=== PATIENT | female | born 1975 | race Caucasian/White ===

== ENCOUNTER 2017-10-25 20:05 | Emergency (ER) | payer BC ==
[2017-10-25] MEDS ORDERED: PROMETHAZINE HCL 25 MG TABLET PO ONE (22:04)
[2017-10-25] MEDS ORDERED: HYDROCODONE/ACETAMINOPHEN 5-325 MG TABLET PO ONE (22:05)
--- NOTE | 2017-10-25 22:05 | ER Document Report ---
ED Medical Screen (RME) - General Chief Complaint: Abdominal Pain Stated Complaint: LEF ABODOMINAL PAIN Time Seen by Provider: 10/25/17 22:03 Mode of Arrival: Ambulatory Information source: Patient Notes: 42-year-old female presents to ED for complaint of left lower quadrant abdominal pain with nausea or vomiting 3-4 times diarrhea 2. She states this all started about 3 PM. She denies any history of fever. She does have a history of kidney stones. Last kidney stone with a year ago. She states she took Motrin and Flomax at 3 PM at 4 PM she took Zofran at 4:30 PM she took Tylenol. She states she has had burning frequency urgency pressure and pain with urination. Her worst pain is on her left flank. She is very tender to palpation. Patient will be treated with narcotics and Phenergan in the emergency room and then she will be seen in the back by 1 of the providers. I have greeted and performed a rapid initial assessment of this patient. A comprehensive ED assessment and evaluation of the patient, analysis of test results and completion of medical decision making process will be conducted by an additional ED providers. TRAVEL OUTSIDE OF THE [place] IN LAST 30 DAYS: No Physical Exam - Vital signs Vitals: Temp Pulse Resp BP Pulse Ox 98.3 F 94 22 H 128/89 H 100 10/25/17 20:25 10/25/17 20:25 10/25/17 20:25 10/25/17 20:25 10/25/17 20:25 Course - Vital Signs Vital signs: Temp Pulse Resp BP Pulse Ox 98.3 F 94 22 H 128/89 H 100 10/25/17 20:25 10/25/17 20:25 10/25/17 20:25 10/25/17 20:25 10/25/17 20:25
[2017-10-25 22:13] LABS: APPEARANCE,URINE CLEAR; BILIRUBIN,URINE NEGATIVE (NEGATIVE); COLOR,URINE AMBER; GLUCOSE, URINE NEGATIVE (NEGATIVE); KETONES,URINE NEGATIVE (NEGATIVE); LEUKOCYTE ESTERASE,URINE NEGATIVE (NEGATIVE); NITRITE,URINE POSITIVE (NEGATIVE); PROTEIN,URINE NEGATIVE (NEGATIVE); URINE SPECIFIC GRAVITY 1.003
[2017-10-25 22:52] LABS: ABSOLUTE BASOPHILS # (AUTO) 0.1 10^3/uL (0.0-0.2); ABSOLUTE EOSINOPHILS # (AUTO) 0.1 10^3/uL (0.0-0.6); ABSOLUTE LYMPHOCYTES (AUTO) 1.5 10^3/uL (0.5-4.7); ABSOLUTE MONOCYTES (AUTO) 0.7 10^3/uL (0.1-1.4); ABSOLUTE NEUT (AUTO) 5.8 10^3/uL (1.7-8.2); BASOPHILS % (AUTO) 0.6 % (0-2); EOSINOPHILS % (AUTO) 0.9 % (0-6); HEMATOCRIT 38.5 % (36.0-47.0); HEMOGLOBIN 13.5 g/dL (12.0-15.5); LYMPHOCYTES % (AUTO) 18.7 % (13-45); MEAN CORPUSCULAR VOLUME 83 fl (80-97); MONOCYTES % (AUTO) 8.3 % (3-13); PLATELET COUNT 242 10^3/uL (150-450); RED BLOOD COUNT 4.64 10^6/uL (3.72-5.28); RED CELL DISTRIBUTION WIDTH 13.3 % (11.5-14.0); SEGMENTED NEUTROPHILS % (AUTO) 71.5 % (42-78); TOTAL CELLS COUNTED % (AUTO) 100 %; WHITE BLOOD COUNT 8.1 10^3/uL (4.0-10.5)
[2017-10-25 23:06] LABS: ALANINE AMINOTRANSFERASE 28 U/L (9-52); ALKALINE PHOSPHATASE 72 U/L (38-126); ANION GAP 10 (5-19); ASPARTATE AMINO TRANSFERASE 14 U/L (14-36); BILIRUBIN,TOTAL 0.6 mg/dL (0.2-1.3); BLOOD UREA NITROGEN 7 mg/dL (7-20); CALCIUM 9.3 mg/dL (8.4-10.2); CARBON DIOXIDE 24 mmol/L (22-30); CHLORIDE 103 mmol/L (98-107); GLUCOSE 129 mg/dL (75-110); LIPASE 28.5 U/L (23-300); POTASSIUM 3.7 mmol/L (3.6-5.0); SODIUM 136.8 mmol/L (137-145); TOTAL PROTEIN 6.5 g/dL (6.3-8.2)
[2017-10-25] MEDS ORDERED: KETOROLAC TROMETHAMINE 60 MG/2 ML SDV IM ONE (23:29)
--- NOTE | 2017-10-25 23:34 | ER Document Report ---
ED General - General Chief Complaint: Abdominal Pain Stated Complaint: LEF ABODOMINAL PAIN Time Seen by Provider: 10/25/17 22:03 Mode of Arrival: Ambulatory Information source: Patient Notes: 42-year-old female with history of previous kidney stones presents to ED for complaint of left lower quadrant abdominal pain with nausea , vomiting, diarrhea that started 8 hours. Patient's last kidney stone with a year ago. States she was able to pass this on her own. She states she took Motrin and Flomax and Pyridium at 3 PM at 4 PM she took Zofran at 4:30 PM she took Tylenol. She states she has had burning, frequency, urgency pressure and pain with urination. Patient's pain is located in the left lower quadrant and left flank. She describes it as a stabbing constant pain. TRAVEL OUTSIDE OF THE [place] IN LAST 30 DAYS: No - HPI Onset: Just prior to arrival Onset/Duration: Sudden Quality of pain: Achy, Throbbing Severity: Moderate Associated symptoms: Diarrhea, Nausea, Vomiting. denies: Fever Exacerbated by: Movement Relieved by: Denies Similar symptoms previously: Yes Recently seen / treated by doctor: No Past Medical History - General Information source: Patient - Social History Smoking Status: Never Smoker Frequency of alcohol use: None Drug Abuse: None Lives with: Family Family History: Reviewed & Not Pertinent Patient has suicidal ideation: No Patient has homicidal ideation: No - Medical History Medical History: Negative Renal/ Medical History: Denies: Hx Peritoneal Dialysis Past Surgical History: Reports: Hx Hysterectomy Review of Systems - Review of Systems Notes: REVIEW OF SYSTEMS: CONSTITUTIONAL : Denies fever, chills, or sweats. Denies recent illness. Denies weight loss, recent hospitalizations. EENT: Denies visula changes, eye pain. Denies nasal or sinus congestion or discharge. Denies sore throat, oral lesions, difficulty swallowing. CARDIOVASCULAR: Denies chest pain. Denies palpitations or racing or irregular heart beat. Denies lower extremity edema. RESPIRATORY: Denies cough, cold, or chest congestion. Denies shortness of breath, difficulty breathing, or wheezing. GASTROINTESTINAL: Denies abdominal distention. Denies blood in vomitus, stools , or per rectum. Denies black, tarry stools. Denies constipation. GENITOURINARY: Denies vaginal discharge. MUSCULOSKELETAL: Denies back or neck pain or stiffness. Denies joint pain or swelling. SKIN: Denies rash, lesions or sores. HEMATOLOGIC : Denies easy bruising or bleeding. LYMPHATIC: Denies swollen, enlarged glands. NEUROLOGICAL: Denies confusion or altered mental status. Denies passing out or loss of consciousness. Denies dizziness or lightheadedness. Denies headache. Denies weakness or paralysis or loss of use of either side. Denies problems with gait or speech. Denies sensory loss, numbness, or tingling. Denies seizures. PSYCHIATRIC: Denies anxiety or stress. Denies depression, suicidal ideation, or homicidal ideation. Physical Exam - Vital signs Vitals: Temp Pulse Resp BP Pulse Ox 98.3 F 94 22 H 128/89 H 100 10/25/17 20:25 10/25/17 20:25 10/25/17 20:25 10/25/17 20:25 10/25/17 20:25 Interpretation: Normal, Hypertensive - Notes Notes: PHYSICAL EXAMINATION: GENERAL: Well-appearing, well-nourished and in no acute distress. HEAD: Atraumatic, normocephalic. EYES: Pupils equal round and reactive to light, extraocular movements intact, conjunctiva are normal. ENT: Nares patent, oropharynx clear without exudates. Moist mucous membranes. NECK: Normal range of motion, supple without lymphadenopathy LUNGS: Breath sounds clear to auscultation bilaterally and equal. No wheezes rales or rhonchi. HEART: Regular rate and rhythm without murmurs ABDOMEN: Left lower quadrant tender to palpation without guarding or rebound. Left CVA tenderness. Female : deferred Musculoskeletal: Normal range of motion, no pitting or edema. No cyanosis. NEUROLOGICAL: Cranial nerves grossly intact. Normal speech, normal gait. Normal sensory, motor exams PSYCH: Normal mood, normal affect. SKIN: Warm, Dry, normal turgor, no rashes or lesions noted. Course - Re-evaluation Re-evalutation: Laboratory 10/25/17 10/25/17 10/25/17 20:31 22:30 22:30 WBC 8.1 RBC 4.64 Hgb 13.5 Hct 38.5 MCV 83 MCH 29.0 MCHC 35.0 RDW 13.3 Plt Count 242 Seg Neutrophils % 71.5 Lymphocytes % 18.7 Monocytes % 8.3 Eosinophils % 0.9 Basophils % 0.6 Absolute Neutrophils 5.8 Absolute Lymphocytes 1.5 Absolute Monocytes 0.7 Absolute Eosinophils 0.1 Absolute Basophils 0.1 Sodium 136.8 L Potassium 3.7 Chloride 103 Carbon Dioxide 24 Anion Gap 10 BUN 7 Creatinine 0.75 Est GFR ( Amer) > 60 Est GFR (Non-Af Amer) > 60 Glucose 129 H Calcium 9.3 Total Bilirubin 0.6 Direct Bilirubin 0.0 Neonat Total Bilirubin Not Reportable Neonat Direct Bilirubin Not Reportable Neonat Indirect Bili Not Reportable AST 14 ALT 28 Alkaline Phosphatase 72 Total Protein 6.5 Albumin 4.0 Lipase 28.5 Urine Color MARIS[place]EL Urine Appearance CLEAR Urine pH 5.0 Ur Specific [place] 1.003 Urine Protein NEGATIVE Urine Glucose (UA) NEGATIVE Urine Ketones NEGATIVE Urine Blood SMALL H Urine Nitrite POSITIVE H Urine Bilirubin NEGATIVE Urine Urobilinogen 2.0 H Ur Leukocyte Esterase NEGATIVE Urine WBC (Auto) 0 Squamous Epi Cells Auto <1 Urine Mucus (Auto) RARE Urine Ascorbic Acid NEGATIVE 10/25/17 23:33 42-year-old female with history of previous kidney stones presents to ED for complaint of left lower quadrant abdominal pain with nausea , vomiting, diarrhea that started 8 hours. Patient's last kidney stone with a year ago. States she was able to pass this on her own. She states she took Motrin and Flomax and Pyridium at 3 PM at 4 PM she took Zofran at 4:30 PM she took Tylenol. She states she has had burning frequency urgency pressure and pain with urination. Patient's pain is located in the left lower quadrant and left flank. She describes it as a stabbing constant pain. Patient was seen by myself upon arrival. Vital signs were reviewed. Patient is afebrile, mildly hypertensive and not hypoxic. Patient does not appear toxic or dehydrated. They are in no acute distress. Previous medical records and nursing notes reviewed. Exam findings include left lower quadrant and left CVA tenderness. CBC is without leukocytosis or anemia. CMP shows no electrolyte abnormalities and normal kidney function. Urinalysis is significant for small amount of blood and positive nitrites but no leuk esterase or WBCs. Bedside ultrasound was performed and showed moderate left-sided hydronephrosis. Patient received Zofran, Percocet, Toradol during her ED course. Because of the patient's symptoms I will treat her like a urinary tract infection. Patient will be prescribed Cipro. Patient provided the opportunity to ask questions, and express concerns. Discharge instructions discussed. Patient is agreeable with discharge home. Return indications explained and discussed with the patient who displays understanding. Patient encouraged to return to the emergency department immediately with any concerns. Patient was advised to follow-up with her urologist if symptoms persist. After performing a Medical Screening Examination, I estimate there is LOW risk for ACUTE APPENDICITIS, BOWEL OBSTRUCTION, ACUTE CHOLECYSTITIS, PERFORATED DIVERTICULITIS, INCARCERATED HERNIA, PANCREATITIS, PELVIC INFLAMMATORY DISEASE, PERFORATED ULCER, ECTOPIC , or TUBO-OVARIAN ABSCESS, thus I consider the discharge disposition reasonable. Also, there is no evidence or peritonitis , sepsis, or toxicity. I have reevaluated this patient multiple times and no significant life threatening changes are noted. The patient and I have discussed the diagnosis and risks, and we agree with discharging home with close follow-up with the understanding that symptoms and presentations can change. We also discussed returning to the Emergency Department immediately if new or worsening symptoms occur. We have discussed the symptoms which are most concerning (e.g., bloody stool, fever, changing or worsening pain, vomiting) that necessitate immediate return. 10/26/17 04:36 10/26/17 04:37 10/26/17 04:40 - Vital Signs Vital signs: Temp Pulse Resp BP Pulse Ox 97.9 F 71 16 119/70 98 10/26/17 00:15 10/26/17 00:15 10/26/17 00:15 10/26/17 00:15 10/26/17 00:15 - Laboratory Result Diagrams: 10/25/17 22:30 10/25/17 22:30 Laboratory results interpreted by me: 10/25/17 10/25/17 20:31 22:30 Sodium 136.8 L Glucose 129 H Urine Blood SMALL H Urine Nitrite POSITIVE H Urine Urobilinogen 2.0 H Procedures - Ultrasound/Bedside Ultrasound/Bedside Time completed: 00:02 - Ultrasound of the kidneys were performed to assess for hydronephrosis. Right kidney showed no evidence of hydronephrosis. Left kidney showed moderate hydronephrosis. Discharge - Discharge Clinical Impression: Dysuria, Left flank pain, History of kidney stones Hematuria Qualifiers: Hematuria type: unspecified type Qualified Code(s): R31.9 - Hematuria, unspecified Condition: Good Disposition: HOME, SELF-CARE Instructions: Kidney Stone ([facility]), Toradol Injection ([facility]) Additional Instructions: Please follow-up with your urologist. Follow up with your physician tomorrow for further care or return to the ED IMMEDIATELY if symptoms worsen or new concerns occur. If you cannot afford to follow up with your primary care physician a list of low cost clinics have been provided at the end of your discharge papers as well. Prescriptions: Ciprofloxacin HCl [Cipro 500 mg Tablet] 500 mg PO BID #10 tablet Ibuprofen [Motrin 600 Mg Tablet] 800 mg PO TID #30 tablet Oxycodone HCl/Acetaminophen [Percocet 5-325 mg Tablet] 1 tab PO ASDIR PRN #15 tab PRN Reason: Tamsulosin HCl [Flomax 0.4 mg Cap.sr] 0.4 mg PO DAILY #7 cap.sr.24h Forms: Elevated Blood Pressure
[2017-10-26 00:17] VITALS: BP 119/70
== END 2017-10-26 00:20 | disposition home or self-care (01) ==
LOC: ER 20:05
DX: N13.30 Unspecified hydronephrosis (principal); R30.0 Dysuria; R31.9 Hematuria, unspecified; R10.9 Unspecified abdominal pain; R10.32 Left lower quadrant pain; R11.2 Nausea with vomiting, unspecified; R19.7 Diarrhea, unspecified; R35.0 Frequency of micturition; Z87.442 Personal history of urinary calculi; Z90.710 Acquired absence of both cervix and uterus
CPT/HCPCS: 99284; 96372; 36415; 83690; 85025; 80053; 81001; J1885